=== PATIENT | female | born 1955 | race Caucasian/White ===

== ENCOUNTER → 2016-09-29 | Outpatient (CLI) | payer BC | LOC: BMCIMAGING 13:53 | PROVIDERS: ATTEND Family Medicine | DX: M79.662 Pain in left lower leg (principal); Z86.718 Personal history of other venous thrombosis and embolism ==

== ENCOUNTER 2017-06-27 18:45 | Emergency (ER) | payer BC ==
[2017-06-27 19:04] VITALS: RESP 18
[2017-06-27] MEDS ORDERED: OSELTAMIVIR PHOSPHATE 75 MG CAP PO ONE (19:25)
--- NOTE | 2017-06-27 19:38 | EDPHY ---
H & P Time Seen by Provider: 06/27/17 19:21 HPI/ROS: HPI Flu symptoms. 62-year-old female by private vehicle. She reports that for the last 2-3 days she has had cough, congestion, fatigue, muscle aches and joint aches. No fever. She reports many of her coworkers have had a similar illness. ROS: Constitutional: No fever, no chills. As above. Eyes: No discharge. No changes in vision. ENT: No sore throat. As above. Respiratory: As above. No shortness of breath. Cardiac: No chest pain, no palpitations. Gastrointestinal: No abdominal pain, no vomiting, no diarrhea. Musculoskeletal: As above Skin: No rashes. Neurological: Mild headache. No focal weakness or altered sensation. Past medical history: Hypothyroidism, factor 5 Leiden deficiency, depression, surgery for ovarian cyst. Social history: Nonsmoker. No alcohol. Here by herself. Physical Exam: General Appearance: Alert, no distress. This patient is responding to questions appropriately and in full sentences. This patient appears well- hydrated and well-nourished. Eyes: Pupils equal and round no pallor or injection. No lid edema, erythema or injection. ENT, Mouth: Mucous membranes are moist. The pharyngeal tissues are unremarkable. No edema or swelling. No asymmetry suggestive of abscess. No erythema or exudates. Respiratory: There are no retractions, lungs are clear to auscultation with good air movement bilaterally. Cardiovascular: Regular rate and rhythm. No murmur. Neurological: Motor sensory function is grossly intact. Cranial nerves are normal. Gait is normal. Skin: Warm and dry, no rashes. Musculoskeletal: Neck is supple and nontender. Extremities are symmetrical. All joints range without pain or impingement. Psychiatric: No agitation. No depression. Database: EKG: Imaging: Procedures: Emergency department course: Vital signs reviewed and are normal. Rapid flu positive. I discussed the utility of starting the patient on Tamiflu. She would like this medication. She was given 75 mg of oral Tamiflu in the emergency department. She feels comfortable going home. Follow-up and return to emergency department precautions discussed. All of her questions were answered. She will be discharged with a prescription for Tamiflu. Differential Diagnosis: The differential diagnosis on this patient includes but is not limited to influenza, viral syndrome. Pneumonia, serious bacterial infection unlikely. This represents a partial list of diagnoses considered. These considerations are based on history, physical exam, past history, reassessment and diagnostic testing. Smoking Status: Never smoked Constitutional: Initial Vital Signs Temperature (C) 36.9 C 06/27/17 19:01 Heart Rate 75 06/27/17 19:01 Respiratory Rate 18 06/27/17 19:01 Blood Pressure 122/73 H 06/27/17 19:01 O2 Sat (%) 93 06/27/17 19:01 O2 Delivery Mode Room Air Allergies/Adverse Reactions: No Known Allergies Allergy (Verified 06/27/17 19:04) Home Medications: Medication Instructions Recorded LEVOTHYROXINE SODIUM 08/06/15 Lexapro 08/06/15 Oseltamivir Phosphate [Tamiflu 75 75 mg PO BID #10 cap 06/27/17 mg (RX)] Xarelto 06/27/17 Medical Decision Making - Data Points Laboratory Results: 06/27/17 18:50 Influenza A,B Rapid POSITIVE FOR FLU A H (NEGATIVE) Medications Given: Discontinued Medications Oseltamivir Phosphate (Tamiflu) 75 mg PO EDNOW ONE Stop: 06/27/17 19:26 Last Admin: 06/27/17 19:29 Dose: 75 mg Departure - Departure Disposition: Home, Routine, Self-Care Clinical Impression: Influenza Condition: Good Instructions: Influenza (ED) Additional Instructions: Read and follow provided instructions. Follow-up with your primary care physician on Thursday for re-evaluation. Do not return to work until 24 hr after being asymptomatic. Take Tamiflu medication as prescribed. You can take Tylenol as directed for fever, muscle aches and joint aches. Return to the emergency department for worsening symptoms, worsening cough, difficulty breathing or other serious concerns. Referrals: Princess Molina MD [Primary Care Provider] - As per Instructions Stand Alone Forms: Work Excuse Prescriptions: Oseltamivir Phosphate [Tamiflu 75 mg (RX)] 75 mg PO BID #10 cap
[2017-06-27 19:54] VITALS: BP 112/65; PULSE 73; TEMP 97.9; O2SAT 95
== END 2017-06-27 19:53 | disposition home or self-care (01) ==
LOC: CED 18:45
DX: J11.1 Influenza due to unidentified influenza virus with other respiratory manifestations (principal)
CPT/HCPCS: 87400-PO